=== PATIENT | female | born 1975 | race Caucasian/White ===

== ENCOUNTER 2016-09-28 05:39 | Outpatient (CLI) | payer OTHER ==
[~2016-09-28] VITALS: Ht 165.1 cm; Wt 136.1 kg
[2016-09-28 11:06] VITALS: BP 118/74
[2016-09-28] MEDS ORDERED: OMEP20TA7 PO ×2 (12:57)
[2016-09-28] MEDS ORDERED: LORA10TA7 PO ×2 (12:57)
[2016-09-28] MEDS ORDERED: RIZA10TA23 PO ×2 (12:57)
[2016-09-28] MEDS ORDERED: PROG100C6 PO ×2 (12:57)
[2016-09-28] MEDS ORDERED: CHOL500049 PO ×2 (12:57)
[2016-09-28] MEDS ORDERED: TOPI100T11 PO ×2 (12:57)
[2016-09-28] MEDS ORDERED: nature thyroid PO ×2 (12:57)
[2016-09-28] MEDS ORDERED: [UNRECOGNIZED DRUG - OTHER] PO ×2 (12:57)
[2016-09-28] MEDS ORDERED: PRAV20TA3 PO ×2 (12:57)
[2016-09-28] MEDS ORDERED: LISI40TA PO ×2 (12:57)
[2016-10-02] MEDS ORDERED: BACL10TA PO ×2 (07:48)
[2016-10-02] MEDS ORDERED: MELO15TA39 PO ×2 (07:48)
[2016-10-02] MEDS ORDERED: HYDR-3812 PO ×2 (09:50)
== END 2016-09-28 11:25 | disposition home or self-care (01) ==
LOC: PREOP 05:39
PROVIDERS: ATTEND Podiatrist Foot & Ankle Surgery
DX: Z01.818 Encounter for other preprocedural examination (principal); Z11.2 Encounter for screening for other bacterial diseases; M76.62 Achilles tendinitis, left leg
CPT/HCPCS: 87081

== ENCOUNTER 2016-10-02 07:25 | Day surgery (SDC) | payer OTHER ==
[~2016-10-02] VITALS: Ht 165.1 cm; Wt 136.1 kg
[~2016-10-02 07:25] MED LIST: CHOL500049 PO; LISI40TA PO; LORA10TA7 PO; OMEP20TA7 PO; PRAV20TA3 PO; PROG100C6 PO; RIZA10TA23 PO; TOPI100T11 PO; [UNRECOGNIZED DRUG - OTHER] PO; nature thyroid PO
[2016-10-02] MEDS ORDERED: MELO15TA39 PO (07:48)
[2016-10-02] MEDS ORDERED: BACL10TA PO (07:48)
[2016-10-02] MEDS ORDERED: ceFAZolin 1 GM/NS 50 ML IVPB IV ONE ×2 (08:00)
[2016-10-02 08:06] VITALS: BP 137/83
[2016-10-02] MEDS ORDERED: LACTATED RINGERS 1,000 ML IV PRN (08:26)
[2016-10-02] MEDS ORDERED: DEXAMETHASONE PF 10 MG/ML (DECADRON) VIAL ONE (08:28)
[2016-10-02] MEDS ORDERED: ONDANSETRON 4 MG/2 ML (SDV) Z0FRAN ONE (08:28)
[2016-10-02] MEDS ORDERED: MIDAZOLAM 2 MG/2 ML (VERSED) VIAL ONE (08:28)
[2016-10-02] MEDS ORDERED: LACTATED RINGERS 1,000 ML IV ONE (08:28)
[2016-10-02] MEDS ORDERED: LIDOCAINE 2% 20 ML (XYLOCAINE) VIAL ONE (08:28)
[2016-10-02] MEDS ORDERED: fentaNYL INJECTION 100 MCG/2 ML AMP ONE (08:28)
[2016-10-02] MEDS ORDERED: proPOfol 200 MG/20 ML (DIPRIVAN) VIAL IV ONE (08:28)
[2016-10-02] MEDS ORDERED: SEVOFLURANE (ULTANE) 15 ML INHAL SOLN ONE ×4 (08:28→09:46)
[2016-10-02] MEDS ORDERED: FAMOTIDINE 20MG/2ML IV (PEPCID) IV ONE (08:30)
[2016-10-02] MEDS ORDERED: ONDANSETRON 4 MG/2 ML (SDV) Z0FRAN IV ONE (08:30)
[2016-10-02] MEDS ORDERED: fentaNYL INJECTION 100 MCG/2 ML AMP IVP PRN (08:30)
[2016-10-02] MEDS ORDERED: BUPIVACAINE 0.25% 30 ML (SENSORCAINE) VIAL ONE (08:36)
--- NOTE | 2016-10-02 08:41 | Progress Note-Pre Operative ---
Pre-Operative Progress Note H&P Reviewed The H&P was reviewed, patient examined and no changes noted. Date Seen by Provider: Oct 02, 2016 Time Seen by Provider: 08:41 Date H&P Reviewed: Oct 02, 2016 Time H&P Reviewed: 08:41 Pre-Operative Diagnosis: Achilles Tendonitis, Enthesiopathy, left BIB DE GUZMAN DPM Oct 02, 2016 8:41 am
[2016-10-02] MEDS ORDERED: MUPIROCIN 2% OINT 22 GM (BACTROBAN) TUBE TOP SCH ×2 (09:00)
[2016-10-02] MEDS ORDERED: HYDROcodone/APAP 5 MG/325 MG (LORTAB) TAB PO PRN (09:45)
[2016-10-02] MEDS ORDERED: LACTATED RINGERS 1,000 ML IV SCH (09:45)
--- NOTE | 2016-10-02 09:45 | Progress Note-Post Operative ---
Post-Operative Progess Note Surgeon (s)/Respiratory Director (s) Surgeon BIB DE GUZMAN DPM Respiratory Director: none Pre-Operative Diagnosis Achilles Tendonitis, Enthesiopathy, left Post-Operative Diagnosis Same Procedure & Operative Findings Date of Procedure 10/02/16 Procedure Performed/Findings [place] on left Achilles Tendon Anesthesia Type General Estimated Blood Loss Estimated blood loss (mL): Minimal Specimens/Packing Specimens Removed None Packing: None BIB DE GUZMAN DPM Oct 02, 2016 9:45 am
[2016-10-02] MEDS ORDERED: HYDR-3812 PO (09:50)
[2016-10-02] MEDS ORDERED: morphine INJ 10 MG/ML 1ML (SYR OR VIAL) ONE (09:59)
[2016-10-02] MEDS: morphine INJ 10 MG/ML 1ML (SYR OR VIAL) IVP PRN ×2 (10:07→10:16)
[2016-10-02 10:40] VITALS: BP 114/69
[2016-10-02 11:10] VITALS: BP 120/83
[2016-10-02 11:40] VITALS: BP 111/74
[2016-10-02 12:20] VITALS: BP_SYST 111; BP_SYST 137; BP_DIAS 74; BP_DIAS 83
--- NOTE | 2016-10-02 13:24 | Physical Therapy Ortho Eval ---
PT Orthopedic Evaluation Type of Surgery left achilles topaz Prior Level of Function Current Living Status: Significant Other Locomotion (Upon Admit): Independent Subjective Subjective Patient in bed pre tx, agrees to PT, has pain of 6/10 in left ankle. Entry Into Home: Stairs With Railing Steps Into Home: 5 Objective Objective Patient has intact light touch sensation in her left ankle Motor Control Motor Control: Motor Control WNL ROM ROM: WFL, except focal deficit Strength NT Transfer Transfers (B, C, W/C) (FIM): 4 Patient performs bed mobility with SBA and stand pivot transfer with CGA. She has no complaints of dizziness. Gait Gait Assistive Device: FWW Weight Bearing Restriction: Non Weight Bearing Location Restriction: L LE Gait (FIM): 1 Distance: 20'x2 Gait Level of Assist: 4 Summary/Comments Patient ambulated 20'x2 with CGA using a rolling walker. She requires a lot of effort to hop forward on her right leg and keep weight off the left. She is not able to hop up on a step, she can barely hop forward to ambulate. Treatment Rendered Treatment: Therapeutic Exercises, Gait Train LAQ, heel slides Assessment/Goals Goal Time Frame: 1 Visit Plan Treatment Plan: Discharge PT/Family Agrees to Plan: Yes Time Time In: 1150 Time Out: 1220 Total Billed Treatment Time: 30 Billed Treatment Time 1 visit EVL 30' PT/OT Therapy GCodes Therapy Functional Limitation: Physical Therapy Test(s)/Tool used to determine: Level of Assistance Scale Functional Limitation-Current Charge Code: MOBCUR Modifier: CI Functional Limitation-Goal Charge Code: MOBGOAL Modifier: CI Functional Limitation-D/C Charge Codes: MOBDC Modifier: CI EKATERINA DORMAN PT Oct 02, 2016 13:24
--- NOTE | 2016-10-03 12:53 | OPERATIVE REPORT ---
PROCEDURE PHYSICIAN: JENNIFER DE GUZMAN DATE OF PROCEDURE: 10/02/2016 SURGEON: Jennifer De Guzman DPM. PREOPERATIVE DIAGNOSIS: Achilles tendinosis left with enthesopathy. POSTOPERATIVE DIAGNOSIS: Achilles tendinosis left with enthesopathy. PROCEDURE: [place] Repair of left Achilles tendon. WOUND CLASS: Clean. ANESTHESIA: General. Pneumatic and calf tourniquet at 250 mmHg with hemostasis. INDICATION: This 41-year-old female presents complaining of chronic pain to her left Achilles tendon and heel. Conservative therapy is met with unsatisfactory results and the patient is agreeable to surgical intervention after risk and complications were discussed at length. No guarantees were extended to the patient and she is willing to proceed. PROCEDURE: The patient was brought back to the operating room where a general anesthetic was then induced. She was then placed in a prone position on the operating table. A pneumatic calf tourniquet was placed over the left lower extremity over several layers of padding. The left foot and ankle were then prepped and draped in normal sterile manner. The left foot was then elevated, allowed to exsanguinate after which the tourniquet was inflated to 250 mmHg. This was after an appropriate timeout was performed. Attention was then directed to the posterior aspect of the left calcaneus and distal Achilles tendon, where a previously marked area of maximal tenderness was indicated. In this area of approximately 4 x 2 cm, was grid of 0.5 cm dots indicating the pattern of topaz intervention. In each of these dots on the grid, an 18-gauge needle was introduced percutaneously. Next, a topaz wand was introduced into the percutaneous puncture holes, and the Achilles tendon was palpated with the end of the warned and the topaz wand was then triggered allowing for penetration into the Achilles tendon. This was repeated throughout the entire grid, the posterior aspect of the distal Achilles tendon and insertion area. The patient tolerated this well. The wounds were then cleansed after which Steri-Strips were then applied. Postoperative injection consisted of 14 mL of 0.5% Marcaine injected in a local infusion to the surgical site. Postoperative dressing consisted of Betadine soaked Adaptic, sterile 4 x 4's, Kerlix, all secured with a Coban wrap. The patient tolerated the anesthesia and procedure well and was transported from the operating room to the recovery area with vital signs stable and vascular status intact to all digits of the left foot. The patient was given postoperative instructions to be nonweightbearing for 2 weeks with toe-touch and a CAM Walker if needed. She is to follow-up in my office in 2 weeks period of time. She can remove the dressing in 5 days period of time if desired. The patient is to use Tylenol or Vicodin for pain but not to use anti-inflammatory medications. Job ID: [id number] Dictated Date: 10/02/2016 10:02:57 [employer] Utility Worker Date: 10/03/2016 12:37:57 / [email or web address] HAINES
== END 2016-10-02 12:20 | disposition home or self-care (01) ==
LOC: SDC 07:25
PROVIDERS: ATTEND Podiatrist Foot & Ankle Surgery
DX: M76.62 Achilles tendinitis, left leg (principal); I10 Essential (primary) hypertension; E78.5 Hyperlipidemia, unspecified; E03.9 Hypothyroidism, unspecified; E55.9 Vitamin D deficiency, unspecified; G40.909 Epilepsy, unspecified, not intractable, without status epilepticus
CPT/HCPCS: 84703

== ENCOUNTER → 2016-12-14 | Outpatient (CLI) | payer MEDICAID, OTHER ==
[~2016-12-14] MED LIST changes: +BACL10TA PO; +HYDR-3812 PO; +MELO15TA39 PO
--- NOTE | 2016-12-14 13:33 | Diagnostic Imaging Report ---
PROCEDURE: MRI lumbar spine. TECHNIQUE: Multiplanar, multisequence MRI of the lumbar spine was performed without contrast. INDICATION: Back pain. Bilateral leg pain. FINDINGS: There is satisfactory alignment of the lumbar spine. There is slightly prominent disc between S1 and S2 levels. The vertebral body heights are preserved. Disc heights are also preserved. Minimal disc desiccation at L4/L5 level is seen. The cauda equina and conus medullaris appear grossly unremarkable. T12/L1: Unremarkable. L1/L2: Unremarkable. L2/L3: No disc herniation. There is mild facet hypertrophy. No central canal, lateral recess or foraminal stenosis. L3/L4: No disc herniation. There is mild to moderate facet hypertrophy. No central canal or lateral recess stenosis. The foramina demonstrate no significant narrowing. L4/L5: There is no disc herniation. There is moderate facet arthropathy. No central canal or lateral recess stenosis. There is moderate foraminal stenosis on the left side at this level abutting the left L4 nerve roots. No significant foraminal stenosis on the right. L5/S1: There is no disc herniation. There is mild facet hypertrophy. No central canal or lateral recess stenosis. No foraminal narrowing. IMPRESSION: Mid to lower lumbar spine facet hypertrophy seen. No significant disc herniation or spinal canal stenosis at any level. There is moderate neural foraminal stenosis on the left side at L4/L5 level abutting the exiting left L4 nerve roots. Dictated by: Dictated on workstation # [id number]
== END ==
LOC: RAD 11:39
PROVIDERS: ATTEND Family Medicine
DX: M48.061 Spinal stenosis, lumbar region without neurogenic claudication (principal)
CPT/HCPCS: 72148

== ENCOUNTER 2017-02-07 09:18 | Outpatient (RCR) | payer MEDICAID, OTHER ==
[~2017-02-07 09:18] MED LIST changes: +ACHD5005 PO; -HYDR-3812 PO
== END 2017-03-15 09:58 | disposition home or self-care (01) ==
PROVIDERS: ATTEND Family Medicine
DX: M54.17 Radiculopathy, lumbosacral region (principal)